=== PATIENT | female | born 1990 | race African-American/Black ===

== ENCOUNTER 2025-04-28 22:48 | Emergency (ER) | payer OTHER ==
[~2025-04-28] VITALS: Ht 157.5 cm; Wt 68.8 kg
[2025-04-29] MEDS: ONDANSETRON 4MG/2ML VIAL IV ONE (03:35)
[2025-04-29] MEDS: MORPHINE 4 MG/ML 1 ML VIAL IV PRN (03:35)
[2025-04-29] MEDS ORDERED: CEPH500C PO (04:29)
[2025-04-29] MEDS: OXYCODONE/APAP 5MG/325MG(HOME DOSE PACK) PO ONE (04:38)
[2025-04-29] MEDS: cefTRIAXone SOD 2 GM in DEXTROSE 5% (D5W) ADV/MINI-BAG 50 ML IV ONE (04:40)
[2025-04-29 04:45] VITALS: BP 97/50; TEMP 98.6; O2SAT 100
== END 2025-04-29 05:15 | disposition home or self-care (01) ==
LOC: M ED 22:48 → EDBD 22:48 → M ED 04-29 05:15
DX: L03.317 Cellulitis of buttock (principal)
CPT/HCPCS: 76857; 96365; 96375; 99284; J0696; J2405